=== PATIENT | male | born 1950 | race Caucasian/White ===

== ENCOUNTER → 2021-03-15 | Outpatient (CLI) | payer OTHER, MEDICARE ==
[~2021-03-15] MED LIST: DEPO-TESTO100 MG/1 M IM; GLUMETZA1000 PO; JARDIANCE25 MG PO; LISINOPRIL20 MG PO; ST. JOSEPH ASPI81 M1 PO; TRULICITY1.5 MG/0.5 SUBQ; ZOCOR 20 MG TAB20 M1 PO
== END ==
LOC: LAB 07:47
PROVIDERS: ATTEND Student in an Organized Health Care Education/Training Program
DX: Z01.812 Encounter for preprocedural laboratory examination (principal); Z20.822 Contact with and (suspected) exposure to COVID-19

== ENCOUNTER → 2021-03-17 | Outpatient (CLI) | payer OTHER ==
[~2021-03-17] VITALS: Ht 180.3 cm; Wt 99.8 kg
--- NOTE | 2021-03-17 16:17 | P ---
[facility] [place] [address] PROCEDURE REPORT Name: JENNIFER FALK Neli Room #: REG [facility]#: [id number] Admission: 03/17/21 Attend Phys: nAthony Uriarte Discharge: Date of : 54 Report #: [id number] THIS REPORT FOR: cc: Jem Givens James A. DO McElhinney, Christian C. MD ~ cc: Jem Givens DO DATE OF SERVICE: 03/17/2021 PROCEDURE PERFORMED: Colonoscopy with polypectomies. 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 He then underwent a sigmoid colon resection with colostomy and Duane's pouch. Last colonoscopy was attempted in 2013, Dr. Joyce was unable to reach the cecum due to large colon distention and looping. He does have a history of polyps from that time. No family history of colon cancer. The patient has a colostomy with Duane's pouch. Plan is for colonoscopy today. DESCRIPTION OF PROCEDURE: The risks and benefits of the procedure were explained to the patient, those risks including but not limited to bleeding, perforation and the risk of sedation. He understood these risks and gave informed consent. Sedation was given using propofol per Anesthesia. Next, using a standard Olympus colonoscope, the scope was placed in the patient's colostomy and advanced under direct vision to the cecum. The overall prep was good. The cecum and ileocecal valve were normal in appearance. In the ascending colon, there was a 6 mm sessile polyp. This was removed by snare cautery, otherwise normal. In the transverse colon, a 5 mm sessile polyp also removed by snare cautery. The remaining descending colon was normal. The scope was then withdrawn from the colostomy. The patient was turned on his left lateral side. Digital rectal exam was initially performed, which was normal. Next, using the same colonoscope, the scope was placed in the patient's anus and advanced under direct vision to the end of the Duane's pouch, which was well healed. There was a mild diverting colitis noted in the rectum, a single 4 mm sessile polyp was noted. This was removed with cold forceps. The scope was then withdrawn and the procedure terminated. The patient tolerated the procedure well. IMPRESSION: 1. Three small colonic polyps. 2. Otherwise, normal colonoscopy. RECOMMENDATIONS: 1. Await biopsy results. 2. If polyps are hyperplastic, repeat in 10 years; if adenomatous polyps, [address] [address] PROCEDURE REPORT Name: JENNIFER FALK Room #: REG Evin Francis#: [id number] Admission: 03/17/21 Attend Phys: Anthony Uriarte Discharge: Date of : 54 Report #: [id number] repeat in 5 years. 3. Okay to proceed with reanastomosis surgery in the future. Thank you for allowing me to participate in his care. <ELECTRONICALLY SIGNED> By: Anthony Tucker MD 03/17/21 1617 0759 1002 Anthony Tucker MD /nt
== END | disposition home or self-care (01) ==
LOC: GI
PROVIDERS: ATTEND Specialist
DX: K56.2 Volvulus (principal); K63.5 Polyp of colon; I10 Essential (primary) hypertension; E11.9 Type 2 diabetes mellitus without complications; E78.5 Hyperlipidemia, unspecified; Z98.890 Other specified postprocedural states; Z79.899 Other long term (current) drug therapy
CPT/HCPCS: 62110; 62900

== ENCOUNTER → 2021-07-08 | Outpatient (CLI) | payer OTHER ==
[~2021-07-08] MED LIST changes: +ASA81BEC PO; +AUGMENTIN 875-1 EACH PO; +ERYTHROMYCIN250 M1 PO; +FLOMAX0.4 MG PO; +METFORMIN HCL500 M3 PO; +MIRALAX17 G1 PO; +NEOMYCIN SULFA500 MG PO; +TESTOSTERO200 MG/1 M IM; +TRULICITY1.5 MG/0.5
== END ==
LOC: LAB 08:18
PROVIDERS: ATTEND Student in an Organized Health Care Education/Training Program
DX: Z01.812 Encounter for preprocedural laboratory examination (principal); Z20.822 Contact with and (suspected) exposure to COVID-19

== ENCOUNTER 2021-07-12 06:08 | Inpatient (IN) | payer OTHER, MEDICARE ==
[~2021-07-12] VITALS: Ht 180.3 cm; Wt 104.3 kg
[2021-07-12 07:30] VITALS: BP 112/81
--- NOTE | 2021-07-12 08:36 | EKG ---
[place] [address] [facility] [place] [address] ELECTROCARDIOGRAM REPORT Name: JENNIFER FALK Neli Room #: 150-1 ADM IN M.R.#: [id number] Admission: 07/12/21 Attend Phys: Speedy Vasquez MD Discharge: Date of : 54 Report #: [id number] [facility] Test Date: 2021-07-12 Test Time: 07:16:58 Pat Name: JENNIFER FALK Department: Room: 150 1 Gender: M Design Sales Consultant: MAURICE : 1950 Requested By: Iva Cota Order Number: [id number] MD: Gavin Girard Measurements Intervals Snyder Rate: 103 P: 41 VA: 154 QRS: 21 QRSD: 108 T: 59 QT: 345 QTc: 452 Interpretive Statements Sinus tachycardia Compared to ECG 09/02/2020 11:56:03 ST (T wave) deviation now present Sinus rhythm no longer present Ventricular premature complex(es) no longer present Electronically Signed On 07-12-2021 8:36:14 SERVER ASSISTANT by Gavin Girard [email or web address] <ELECTRONICALLY SIGNED> By: Gavin Girard MD, [facility] 07/12/21 0836 5 5 Gavin Girard MD, [facility] /EPI
[2021-07-12 12:19] VITALS: BP 116/64
[2021-07-12 15:22] VITALS: BP 109/66
--- NOTE | 2021-07-12 19:50 | NUR ---
Assumed care of patient during 1200 hour. Patient slightly drowsy from anesthesia, able to answer orientation and admission questions. Vital signs stable. Patient on room air, clear lung sounds. Heart tones normal, on telemetry, normal sinus rhythm. Diego catheter in place. Lap sites noted on abdomen, gauze dressing in place, dry and intact. R arm IV with NS at 75 noted, no signs of infiltration or phlebitis. Sister at bedside. Patient reports pain is well controlled with oxycodone, reports some nausea that is relieved by IV zofran. No concerns at this time.
[2021-07-12 22:34] VITALS: BP 97/69
--- NOTE | 2021-07-13 04:01 | NUR ---
PT IS A/O X4 AND IS UP WITH SBA TO THE BR. LAP SITES C/D/I. DRSG TO OLD COLOSTOMY SITE IS C/D/I. RA, VSS. MEDICATIONS GIVEN PER MAR. PT IS PROGRESSING TOWARDS PLAN OF CARE DC GOALS. FALL PRECAUTIONS IN PLACE, CALL LIGHT IS WITHIN REACH.
[2021-07-13 06:07] LABS: HEMATOCRIT 46.8 % (42.0-52.0); HEMOGLOBIN 15.5 gm/dL (14.0-18.0); MCH 32.4 pg (26.0-34.0); MCHC 33.2 g/dL (28.0-37.0); MCV 97.8 fL (80.0-100.0); RBC 4.78 mil/uL (4.50-6.00); RDW 13.8 % (10.5-14.5); WBC 7.3 thou/uL (4.0-11.0)
[2021-07-13 06:35] LABS: ALBUMIN 3.3 g/dL (3.4-5.0); CALCIUM 8.2 mg/dL (8.5-10.1); MAGNESIUM 2.3 mg/dL (1.8-2.4); PHOSPHORUS 2.7 mg/dL (2.5-4.9)
[2021-07-13 07:37] VITALS: BP 111/70
--- NOTE | 2021-07-13 09:38 | NUR ---
ASSUMED PT CARE THIS AM. PT IS ALERT & ORIENTED X4. PT HAS IV SITE ON RFA RUNNING NS @75ML/HR. PT HAS TELE MONITOR ON AND IS ON ROOM AIR. PT HAD LAP REVERSAL COLOSTOMY YESTERDAY. PT TOLERATED CLEAR LIQUID DIET. PT IS ACCUCHECK Q6H. PT HAS PUENTES CATH IN PLACE. PT IS CURRENTLY SITTING ON THE CHAIR WATCHING TV. CALL LIGHT WITHIN REACH. WILL FOLLOW POC.
[2021-07-13 12:16] VITALS: BP 99/55
[2021-07-13 15:52] VITALS: BP 98/53
--- NOTE | 2021-07-14 02:35 | NUR ---
PT IS A/O X4 AND IS UP AD GIRMA. STEADY ON HIS FEET. RA. VSS. FLUIDS INFUSING AT PRESCRIBED RATE. MEDICATIONS GIVEN PER MAR. FALL ABDOMINAL BINDER IN PLACE. CALLS OUT APPROPRIATELY FOR ASSISTANCE. PT IS PROGRESSING TOWARDS PLAN OF CARE DC GOALS.
[2021-07-14 03:11] LABS: HEMATOCRIT 41.8 % (42.0-52.0); HEMOGLOBIN 14.6 gm/dL (14.0-18.0); MCH 33.6 pg (26.0-34.0); MCHC 34.8 g/dL (28.0-37.0); MCV 96.4 fL (80.0-100.0); RBC 4.34 mil/uL (4.50-6.00); RDW 13.4 % (10.5-14.5); WBC 7.4 thou/uL (4.0-11.0)
[2021-07-14 03:19] VITALS: BP 97/60
[2021-07-14 04:50] LABS: ALBUMIN 3.1 g/dL (3.4-5.0); CALCIUM 7.4 mg/dL (8.5-10.1); PHOSPHORUS 2.7 mg/dL (2.5-4.9); POTASSIUM 4.1 mmol/L (3.5-5.1)
[2021-07-14 08:19] VITALS: BP 112/77
--- NOTE | 2021-07-14 09:44 | NUR ---
ASSUMED PT CARE THIS AM. PT TOLERATED DIET AND MEDICATION WELL. PT HAS ABDOMINAL BINDER IN PLACE. PT IS ON TELE MONITOR. PT IS UP AD GIRMA AND HAS BEEN AMBULATING THIS AM. PT IS ACCUCHECK ACHS. WILL FOLLOW POC.
--- NOTE | 2021-07-14 14:07 | PATH ---
[facility] [address] [place] [address] PATHOLOGY RPT PROCEDURE Name: DEYACONRADO Quinteros Room #: 448-P [facility] IN M.R.#: [id number] Admission: 07/12/21 Date of : 54 Discharge: Report #: [id number] Path Case #: [id number] [facility] Accession Number: [id number] . 01 Material submitted: . PART A: colon - COLOSTOMY PART B: colon - ANASTOMOTIC RINGS . 01 Clinical history: . LAPAROSCOPIC COLOSTOMY REVERSAL . 02 Diagnosis: A. Large bowel and skin "colostomy", takedown: - Segment of anastomosed skin and large bowel with reactive changes of squamous epithelium, acute and chronic inflammation and fibrosis at anastomotic site; negative for malignancy. . B. Large bowel "anastomotic rings": - Short segments of large bowel with focal fat necrosis involving subserosal adipose tissue; negative for malignancy. (KENTRELL:suni; 07/13/2021) QMS 07/14/2021 1307 Local . 02 Electronically signed: . Sang Alexandre MD, Pathologist NPI- [id number] . 01 Gross description: . A. The specimen is received in formalin, labeled "Conrado Hodges, colostomy" and consists of an unoriented segment of intestine (4.0 cm in length by 2.6 cm in diameter) with one stapled end and an opposing attached portion of worley skin (3.8 x 2.2 cm) that displays a central area of exposed unremarkable intestinal mucosa (3.5 x 2.0 cm). The staple margin is inked black and the skin margin is inked blue. The mucosa is unremarkable with normal intestinal folds. Abnormal Psychology Teacher submitted in 3 cassettes as follows: A1: Staple margin, submitted en face, represented A2: Skin margin, submitted on edge, represented A3: Intestine, represented . B. The specimen is received in formalin, labeled "Conrado Hodges, anastomotic rings" and consists of an unoriented portion of intestine (0.8 cm in length by 1.3 cm diameter) with a minimal amount of attached soft tissue. The mucosa is unremarkable. Two staple lines (each averaging approximately 0.5 cm) are identified. Also received in the same container is an additional unoriented portion of intestine (0.7 cm length by 1.0 cm in diameter) with minimal attached soft [address] [address] PATHOLOGY RPT PROCEDURE Name: CONRADO HODGES Room #: 448-P [facility] IN M.R.#: [id number] Admission: 07/12/21 Date of : 54 Discharge: Report #: [id number] Path Case #: [id number] tissue. The mucosa is unremarkable. Abnormal Psychology Teacher sections (excluding the staple line) are submitted in B1-B2. ([place]; 07/12/2021) DKA/DKA 07/12/2021 1722 Local . 02 Pathologist provided ICD-10: K52.9 . 02 CPT . 120905, [id number] Specimen Comment: A courtesy copy of this report has been sent to [phone] Specimen Comment: [phone] Specimen Comment: Report sent to / DR NAILS Performed at: 01 [facility] [address] [id number] MD Sylvain Crespo MD Phone: [phone] Performed at: 02 [facility] [address] [id number] MD Ruben Ramos MD Phone: [phone]
[2021-07-14 19:10] VITALS: BP 120/65
--- NOTE | 2021-07-15 06:25 | NUR ---
NO ACUTE EVENTS OVER NIGHT. PT UAL IN ROOM AND WALKING IN HALLS. SR ON TELE- ST WITH AMBULATION. PT REPORTS BM THIS MORNING, DESCRIBED IT "NEW BORN BABY POOP". PAIN WELL CONTROLLED- ITCHING AT WOUND SITE BUT NO OTHER COMPLAINTS
--- NOTE | 2021-07-15 09:59 | NUR ---
Assumed care of pt at 0700. Pt a&ox4. Incisions well-approximated. Dressing c/d/i. Up ad lanette. Call light within reach.
[2021-07-15 20:15] VITALS: BP 122/69
--- NOTE | 2021-07-16 03:36 | NUR ---
ASSUMED PT CARE THIS PM. PT IS ALERT AND ORIENTED X4. PT HAS DRSG TO THE LUQ WHICH IS D/I. PT HAS 3LAP SITES. MEDS WERE GIVEN PER EMAR ORDERS. NO COCNERNS WERE VERBALIZED BY PT. FALL PRECAUTIONS IN PLACE.WILL CONTINUE TO MONITOR.
[2021-07-16 03:40] LABS: HEMATOCRIT 41.6 % (42.0-52.0); MCH 32.7 pg (26.0-34.0); MCHC 33.7 g/dL (28.0-37.0); MCV 96.8 fL (80.0-100.0); RBC 4.3 mil/uL (4.50-6.00); RDW 13.1 % (10.5-14.5); WBC 5.9 thou/uL (4.0-11.0)
[2021-07-16 03:49] LABS: CALCIUM 8.2 mg/dL (8.5-10.1); CREATININE 0.8 mg/dL (0.7-1.3)
[2021-07-16 09:00] VITALS: BP 125/73
[2021-07-16 12:00] VITALS: BP 106/74
--- NOTE | 2021-07-16 15:34 | NUR ---
Patient admits for colostomy takedown. He is independent with adls. Patient employed works at [employer] ([place]), he has health insurance. Sp with nursing anticipate no dc needs for casemgt
[2021-07-16 16:00] VITALS: BP 98/69
[2021-07-16 20:29] VITALS: BP 108/64
--- NOTE | 2021-07-17 04:34 | NUR ---
PT BEEN RESTING IN NO ACUTE DISTRESS.A/OX4.VSS.S/P COLOSTOMY TAKEDOWN.PLAN IS TO DISCHARGE TODAY AFTER REMOVAL OF THE PACKING.NO CONCERNS VOICED.
[2021-07-17 07:23] VITALS: BP 115/73
[2021-07-17] MEDS ORDERED: NEURONTIN 300M300 M2 PO (07:45)
[2021-07-17] MEDS ORDERED: ACETAMINOPHEN325 M1 PO (07:45)
[2021-07-17] MEDS ORDERED: MIRALAX119 GM PO (07:46)
[2021-07-17] MEDS ORDERED: TRAMADOL 50 MG50 MG PO (07:46)
[2021-07-17 08:03] VITALS: BP 108/64
[2021-07-17 09:32] VITALS: BP 115/73
--- NOTE | 2021-07-17 10:36 | NUR ---
ASSUMED CARE OF PT AT 0700 THIS MORNING. PT IS A/OX4 WITH NO COMPLAINTS. PT IS READY TO GO HOME AND WAITING FOR DISCHARGE ORDERS FROM DR. MOORE. DR MOORE STATED TO PULL THE WICK OUT OF THE OLD OSTOMY SITE IN THE LLQ AND REDRESS WITH 4X4 AND TAPE. PT IS INDEP AMBULATION. NO FALL PRECAUTIONS NEEDED. CALL LIGHT AND OTHER NEEDS ARE IN REACH. ASSESSMENTS NOTED IN CHART AND OTHERWISE UNREMARKABLE. MEDS AND TX GIVEN NEEDED AND SCHEDULED. PT HAS SIGNED DISCHARGE PACKET AND IS IN HIS POSESSION. WILL MONITOR AND UPDATE IF NEEDED.
== END 2021-07-17 11:25 | disposition home or self-care (01) | DRG 331 ==
LOC: TBA 06:08 → PRE 09:23 → 4S 12:01 → PRE 15:55 → 4S 07-17 11:25
PROVIDERS: ADMIT Surgery; ATTEND Surgery
PROC: 0DBN4ZZ Excision of Sigmoid Colon, Percutaneous Endoscopic Approach (ICD-10-PCS; principal; 2021-07-12)
DX: K56.2 Volvulus (principal); E11.9 Type 2 diabetes mellitus without complications; E78.5 Hyperlipidemia, unspecified; Z79.82 Long term (current) use of aspirin; Z79.899 Other long term (current) drug therapy
CPT/HCPCS: 10100; 10102; 50010; 50101; 50386; 50455; 50555; 51398; 51412; 51489; 51712; 52265; 53307; 53310; 54118; 56525; 56526; 56527; 57092; 58115; 58574; 58589; 58984; 62110; 62900; 70005